=== PATIENT | male | born 1985 | race Hispanic/Latino ===

== ENCOUNTER → 2024-10-31 10:14 | Outpatient (REF) | payer OTHER, SELFPAY ==
[2024-10-31 10:52] LABS: % Basophils 0.8 % (0-2); % Eosinophils 5.6 % (0-6); % Immature Granulocytes 0.2 % (0-0.5); % Lymphocytes 37.4 % (20.5-51.1); % Monocytes 9.1 % (1.7-9.3); % Neutrophils 46.9 % (42.2-75.2); Absolute Basophils 0.1 10^3/uL (0-0.2); Absolute Eosinophils 0.4 10^3/uL (0-0.7); Absolute Lymphocytes 2.4 10^3/uL (1.2-3.4); Absolute Monocytes 0.6 10^3/uL (0.1-0.6); Hematocrit 43.7 % (39.0-52.0); Hemoglobin 15.7 g/dL (13.0-18.0); Mean Corp Hgb Conc. 35.9 g/dL (33.0-37.0); Mean Corpuscular Hgb 31.2 pg (27.0-31.0); Mean Corpuscular Volume 86.7 fL (80.0-94.0); Mean Platelet Volume 10.6 fL (7.4-10.4); Nucleated Red Blood Cells % 0 % (-); Platelet Count 195 10^3/uL (130-400); Red Blood Cell Count 5.04 10^6/uL (4.70-6.10); Red Cell Dist. Width 12.6 % (11.5-14.5); White Blood Cell Count 6.3 10^3/uL (4.8-10.8)
[2024-10-31 11:43] LABS: ALT (SGPT) 119 U/L (0-50); AST (SGOT) 41 U/L (17-59); Albumin 4.8 g/dl (3.5-5.0); Alkaline Phosphatase 99 U/L (38-126); Blood Urea Nitrogen 13 mg/dl (9-20); Calcium 9.3 mg/dl (8.4-10.2); Carbon Dioxide 25 mmol/L (22-30); Chloride 106 mmol/L (98-107); Glucose 110 mg/dl (70-99); HDL Cholesterol 36 mg/dl; LDL Cholesterol, Calculated 167 mg/dl; Potassium 4.5 mmol/L (3.5-5.1); Sodium 143 mmol/L (135-145); Total Bilirubin 0.8 mg/dl (0.2-1.3); Total Cholesterol 257 mg/dl (50-199); Triglyceride 272 mg/dl (10-149); Very Low Density Lipoprotein 54 mg/dl (0-30); eGFR > 60.00
[2024-10-31 12:12] LABS: Glycohemoglobin (HgbA1c) 5.1 % (4.0-5.6)
[2024-10-31 12:30] LABS: TSH Reflex To Free T4 1.38 uIU/ml (0.47-4.68)
== END ==
LOC: CLINIC 10:14
PROVIDERS: ATTENDING PHYSICIAN Family Medicine
DX: Z13.220 Encounter for screening for lipoid disorders (principal); R51.9 Headache, unspecified
CPT/HCPCS: 36415; 80053; 80061; 83036; 84443; 85025

== ENCOUNTER → 2025-02-03 06:53 | Outpatient (REF) | payer OTHER, SELFPAY | LOC: MRI 3T 06:53 | PROVIDERS: ATTENDING PHYSICIAN Family Medicine | DX: R51.9 Headache, unspecified (principal) | CPT/HCPCS: 70553; A9575 ==